=== PATIENT | male | born 1955 | race American Indian/Alaskan Native ===

== ENCOUNTER 2017-05-07 02:20 | Inpatient (IN) | payer SELFPAY ==
[2017-05-07 03:27] LABS: Basophils % (Auto) 0.4 % (0.0-1.8); Eosinophils % (Auto) 1.3 % (0.0-4.3); Hematocrit 45.4 % (35.5-45.6); Hemoglobin 15.1 gm/dl (11.8-15.2); Mean Corpuscular HGB Conc 33 % (32-34); Mean Corpuscular Hemoglobin 30 pg (28-32); Mean Corpuscular Volume 91 fl (84-94); Platelet Count 241 K/mm3 (140-440); Red Cell Distribution Width 13.6 % (13.2-15.2)
[2017-05-07 03:37] LABS: INR 0.96 (0.87-1.13)
[2017-05-07 03:38] LABS: Partial Thromboplastin Time 29.4 Sec. (24.2-36.6)
[2017-05-07 03:46] LABS: Anion Gap 19 mmol/L; BUN/Creatinine Ratio 15.55; Blood Urea Nitrogen 14 mg/dL (9-20); Calcium 8.9 mg/dL (8.4-10.2); Carbon Dioxide 25 mmol/L (22-30); Chloride 102.2 mmol/L (98-107); Glucose 120 mg/dL (75-100); Potassium 3.7 mmol/L (3.6-5.0); Sodium 142 mmol/L (137-145)
--- NOTE | 2017-05-07 04:02 | Emergency Department Report ---
ED Palpitations HPI - General Chief Complaint: Chest Pain Stated Complaint: CP,SOB Time Seen by Provider: 05/07/17 02:51 Source: patient Mode of arrival: Ambulatory Limitations: No Limitations - History of Present Illness Initial Comments: 62-year-old male with a past medical history CVA and hypertension and SVT episode 2 years ago presents to the hospital complaining of palpitations, chest pain, and shortness of breath. Patient woke up at 1:30 AM with his current symptoms. There continues without aggravating or alleviating factors. Chest tightness rated 4/10 in intensity. No reports of nausea, vomiting, or diaphoresis. Similar episode 2 years ago. Patient was treated with IV medication admitted to the hospital. Told that he might need cardiac stents. 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 - Related Data Allergies Allergy/AdvReac Type Severity Reaction Status Date / Time No Known Allergies Allergy Verified 05/07/17 02:33 ED Review of Systems ROS: Stated complaint: CP,SOB Other details as noted in HPI Comment: All other systems reviewed and negative Other: Constitutional: No fevers chills Eyes: No eye pain visual changes ENT: No ear pain or throat pain Neck: Denies pain Respiratory: Denies cough wheezing Cardiovascular: As per HPI GI: Denies abdominal pain, nausea, vomiting, diarrhea : Denies dysuria Musculoskeletal: Denies back pain, joint swelling Skin: Denies rash, lesions, erythema Neurologic: Denies headache, numbness, weakness Psychiatric: Denies suicidal ideation, hallucinations ED Past Medical Hx - Past Medical History Previous Medical History?: Yes Hx Hypertension: Yes Additional medical history: CVA 05/2016. svt 2014 - Surgical History Past Surgical History?: No - Social History Smoking Status: Never Smoker Substance Use Type: None ED Physical Exam - General Limitations: No Limitations - Other Other exam information: General: Mild distress Head exam: Atraumatic, normocephalic Eyes exam: Normal appearance ENT: Moist mucous membrane, normal oropharynx Neck exam: Normal inspection, full range of motion Respiratory exam: Clear to auscultation bilateral, no wheezes, rales, crackles Cardiovascular: Tachycardic regular rhythm Abdomen: Soft, nondistended, and nontender, with normal bowel sounds, no rebound, or guarding Extremity: Full range of motion normal inspection no deformity, no calf tenderness or edema Back: Normal Inspection, full range of motion, no tenderness Neurologic: Alert, oriented x3, cranial nerves intact, no motor or sensory deficit Psychiatric: normal affect, normal mood Skin: Warm, dry, intact ED Course Vital Signs 05/07/17 05/07/17 05/07/17 02:33 02:56 03:07 Temperature 97.6 F Pulse Rate 160 H 160 H 70 Respiratory 20 15 Rate Blood Pressure Blood Pressure 126/87 [Right] O2 Sat by Pulse 94 96 Oximetry 05/07/17 05/07/17 03:31 04:01 Temperature Pulse Rate 69 67 Respiratory 14 17 Rate Blood Pressure 100/66 122/77 Blood Pressure [Right] O2 Sat by Pulse 99 97 Oximetry - Reevaluation(s) Reevaluation #1: 05/07/17 04:36 Patient given adenosine 6 mg with conversion to sinus rhythm. Remains asymptomatic at this time - Consultations Consultation #1: 05/07/17 04:01 case d/w DR Skinner ([facility]) consult ordered, will evaluate ED Medical Decision Making - Lab Data Result diagrams: 05/07/17 02:33 05/07/17 02:33 Lab Results 05/07/17 05/07/17 05/07/17 Range/Units 02:33 02:33 02:33 WBC 9.0 (4.5-11.0) K/mm3 RBC 5.00 (3.65-5.03) M/mm3 Hgb 15.1 (11.8-15.2) gm/dl Hct 45.4 (35.5-45.6) % MCV 91 (84-94) fl MCH 30 (28-32) pg MCHC 33 (32-34) % RDW 13.6 (13.2-15.2) % Plt Count 241 (140-440) K/mm3 Lymph % (Auto) 31.4 (13.4-35.0) % [place] % (Auto) 10.2 H (0.0-7.3) % Eos % (Auto) 1.3 (0.0-4.3) % Baso % (Auto) 0.4 (0.0-1.8) % Lymph # 2.8 (1.2-5.4) K/mm3 [place] # 0.9 H (0.0-0.8) K/mm3 Eos # 0.1 (0.0-0.4) K/mm3 Baso # 0.0 (0.0-0.1) K/mm3 Seg Neutrophils % 56.7 (40.0-70.0) % Seg Neutrophils # 5.1 (1.8-7.7) K/mm3 PT 12.7 (12.2-14.9) Sec. INR 0.96 (0.87-1.13) APTT 29.4 (24.2-36.6) Sec. Sodium 142 (137-145) mmol/L Potassium 3.7 (3.6-5.0) mmol/L Chloride 102.2 (98-107) mmol/L Carbon Dioxide 25 (22-30) mmol/L Anion Gap 19 mmol/L BUN 14 (9-20) mg/dL Creatinine 0.9 (0.8-1.5) mg/dL Estimated GFR > 60 ml/min BUN/Creatinine Ratio 15.55 % Glucose 120 H (75-100) mg/dL Calcium 8.9 (8.4-10.2) mg/dL Magnesium (1.7-2.3) mg/dL Troponin T < 0.010 (0.00-0.029) ng/mL Free T4 (0.76-1.46) ng/dL 05/07/17 05/07/17 Range/Units 02:33 03:20 WBC (4.5-11.0) K/mm3 RBC (3.65-5.03) M/mm3 Hgb (11.8-15.2) gm/dl Hct (35.5-45.6) % MCV (84-94) fl MCH (28-32) pg MCHC (32-34) % RDW (13.2-15.2) % Plt Count (140-440) K/mm3 Lymph % (Auto) (13.4-35.0) % [place] % (Auto) (0.0-7.3) % Eos % (Auto) (0.0-4.3) % Baso % (Auto) (0.0-1.8) % Lymph # (1.2-5.4) K/mm3 [place] # (0.0-0.8) K/mm3 Eos # (0.0-0.4) K/mm3 Baso # (0.0-0.1) K/mm3 Seg Neutrophils % (40.0-70.0) % Seg Neutrophils # (1.8-7.7) K/mm3 PT (12.2-14.9) Sec. INR (0.87-1.13) APTT (24.2-36.6) Sec. Sodium (137-145) mmol/L Potassium (3.6-5.0) mmol/L Chloride (98-107) mmol/L Carbon Dioxide (22-30) mmol/L Anion Gap mmol/L BUN (9-20) mg/dL Creatinine (0.8-1.5) mg/dL Estimated GFR ml/min BUN/Creatinine Ratio % Glucose (75-100) mg/dL Calcium (8.4-10.2) mg/dL Magnesium 2.30 (1.7-2.3) mg/dL Troponin T (0.00-0.029) ng/mL Free T4 1.06 (0.76-1.46) ng/dL - EKG Data -: EKG Interpreted by Me (svt rate 158 with lateral and inferior ST depression) - EKG Data 05/07/17 04:36 EKG status post adenosine: Sinus rhythm rate [address] depression inferior and lateral - Radiology Data Radiology results: image reviewed (chest x-ray: No acute findings) - Medical Decision Making Plan to admit patient to the hospital for further cardiac evaluation and given ST abnormality and history of possibly needing a stent. Patient is further cardiac evaluation. Currently asymptomatic at disposition - Differential Diagnosis SVT, thyroid disease, electrolyte abnormality, arrhythmia Critical Care Time: No Critical care attestation.: If time is entered above; I have spent that time in minutes in the direct care of this critically ill patient, excluding procedure time. ED Disposition Clinical Impression: SVT (supraventricular tachycardia), HTN (hypertension), Chest pain Disposition: OP ADMIT IP TO THIS HOSP Is pt being admited?: Yes Does the pt Need Aspirin: Yes Condition: Stable Time of Disposition: 03:59 (Dr wasserman/hosp)
--- NOTE | 2017-05-07 04:16 | XRay Report ---
FINAL REPORT PROCEDURE: XR CHEST 1V AP TECHNIQUE: Chest radiograph anteroposterior view. CPT 89714 HISTORY: palpitations, chest pain COMPARISON: No prior studies are available for comparison. FINDINGS: Heart: Normal. Mediastinum/Vessels: Normal. Lungs/Pleural space: There are fibrotic changes at the lung bases. There are no active infiltrates. There are no effusions or pneumothoraces.. Bony thorax: No acute osseous abnormality. Life support devices: None. IMPRESSION: No acute cardiopulmonary abnormality.
[2017-05-07] MEDS ORDERED: ASPIRIN PO ONE (04:38)
--- NOTE | 2017-05-07 07:45 | Admit Criteria Form ---
Admission Criteria Documentation: SUPRAVENTRICULAR ARRHYTHMIAS Clinical Indications for Admission to Inpatient Care (Place 'X' for any and all applicable criteria): Admission is indicated by ANY ONE of the following (1)(2): [X]I. Arrhythmia causing significant symptoms or findings as indicated by ANY ONE of the following: [X]a) Chest pain [ ]b) Myocardial ischemia [ ]c) Altered mental status [ ]d) Dizziness, weakness, or light-headedness [ ]e) Dyspnea or hypoxemia [ ]f) Heart failure (eg, pulmonary edema)(11) [ ]II. Initiation of antiarrhythmic drug therapy is needed in patient at high risk of adverse events as indicated by ANY ONE of the following: [ ]a) Significant structural heart disease (eg, aortic stenosis, reduced ejection fraction, cardiomyopathy, congenital heart disease) [ ]b) Underlying sinus node or atrioventricular conduction disturbances [ ]c) Prolonged QT interval [ ]d) Need for treatment with antiarrhythmic that have significant proarrhythmic potential ( procainamide) [ ]e) Patient whose sinus rhythm has not been observed on ECG [ ]III. Inpatient admission required rather than observation care because of ANY ONE of the following: [ ]a) Syncope [ ]b) Patient has automatic implanted cardioverter-defibrillator that is repeatedly firing, malfunctioning, or in need of immediate adjustment of settings beyond scope of ambulatory or observation care. [ ]c) Hemodynamic instability that is severe or persistent [ ]d) Unstable cardiac conduction defects indicated by ANY ONE of the following(19)(20)(21): [ ]a) Type II second-degree atrioventricular block [ ]b) Third-degree atrioventricular block [ ]C) New-onset left bundle branch block with suspected myocardial ischemia [ ]e) Severe electrolyte abnormalities requiring inpatient care [ ]f) Continuous intravenous infusion of anticoagulation, platelet inhibitor, vasoactive, or antiarrhythmic medication(14) [ ]g) Pulmonary artery catheter monitoring [ ]h) Repeat cardioversion necessary [ ]i) Other condition, treatment or monitoring requiring inpatient admission [ ]IV. Underlying medical condition that necessitates inpatient care (eg, thyrotoxicosis, severe acidosis) Extended stay beyond goal length of stay may be needed for(1)(17)(18): [ ]a) Persistent hemodynamic instability or continued severe arrhythmia [ ]b) Continued monitoring during initiation of certain medications (eg, some antiarrhythmics)(17)(19) [ ]c) Precipitating cause requires ongoing inpatient care (eg, severe electrolyte abnormality, systemic infection, acidosis) [ ]d) Unstable comorbidities The original [facility] content created by [facility] has been revised. The portions of the content which have been revised are identified through the use of italic text or in bold, and [facility] has neither reviewed nor approved the modified material. All other unmodified content is copyright [facility]. Please see references footnoted in the original [facility] edition 2016 Admission Criteria Met: Yes
--- NOTE | 2017-05-07 08:53 | History and Physical Report ---
History of Present Illness Date of examination: 05/07/17 Date of admission: 05/07/17 04:01 Chief complaint: Heart Palpitations History of present illness: is a 62 years old female with h/o HTN, CVA with right side weakness who presented to the ED complaining of chest pain and palpation . He states that the pain began the today around 4:30 consisted of a heart palpation, followed by a dull chest pain that would last around 2 minutes. The pain was located over his left chest area somewhat near his shoulder. The onset of pain came while the patient was sleeping. he noticed the pain as he was getting out of bed. Once again it was a dull pain, preceded by a consisted heart palpations. The patient did experience diaphoresis and some tingling in his right arm after the pain ceased. He continued to have several episodes of the pain throughout the morning, so his sister decided to take him to the ED around 6: 00Am. The painful episodes did not increase in intensity or severity during this time. At the ED the patient was given adenosine 6mg then 12mg and was converted to sinus rhythm. patient has not experienced any shortness of breath , nausea, vomiting during these episodes of pain. He has had the same episodes two years ago. patient was treated with IV medication and was told he might need cardiac stents but somewhat patient did not agree with the recommendation. Past History Past Medical History: hypertension, stroke (05/2016 with right side weakness) Past Surgical History: No surgical history Social history: single Family history: hypertension Medications and Allergies Allergies Allergy/AdvReac Type Severity Reaction Status Date / Time No Known Allergies Allergy Verified 05/07/17 02:33 Home Medications Medication Instructions Recorded Confirmed Last Taken Type Unobtainable 05/07/17 05/07/17 Unknown History Active Meds: Active Medications Acetaminophen (Tylenol) 650 mg PO Q4H PRN PRN Reason: Pain MILD(1-3)/Fever >100.5/VELA Aspirin (Aspirin) 325 mg PO QDAY DORIS Bisacodyl (Dulcolax) 10 mg MO QDAY PRN PRN Reason: Constipation unrelieved by MOM Magnesium Hydroxide (Milk Of Magnesia) 30 ml PO Q4H PRN PRN Reason: Constipation Morphine Sulfate (Morphine) 2 mg IV Q4H PRN PRN Reason: Pain, Moderate (4-6) Ondansetron HCl (Zofran) 4 mg IV Q8H PRN PRN Reason: N/V unrelieved by Reglan Review of Systems Constitutional: no weight loss, no weight gain, no fever, no chills, no sweats Ears, nose, mouth and throat: no ear pain, no ear discharge, no tinnitis, no decreased hearing Cardiovascular: chest pain, palpitations, rapid/irregular heart beat, syncope, no lightheadedness, no shortness of breath Respiratory: no cough, no cough with sputum, no excessive sputum Gastrointestinal: no abdominal pain, no nausea, no vomiting Genitourinary Male: no dysuria, no hematuria, no flank pain Musculoskeletal: no neck stiffness, no neck pain, no shooting arm pain Integumentary: no rash, no pruritis Neurological: no head injury, no transient paralysis, no paralysis Psychiatric: no anxiety, no memory loss, no change in sleep habits, no sleep disturbances, no insomnia Endocrine: no cold intolerance, no heat intolerance, no polyphagia Hematologic/Lymphatic: no easy bruising, no easy bleeding Allergic/Immunologic: no urticaria, no allergic rhinitis Exam - Constitutional Vitals: Temp Pulse Resp BP Pulse Ox 97.6 F 63 20 130/75 95 05/07/17 02:33 05/07/17 07:31 05/07/17 07:31 05/07/17 07:31 05/07/17 07:31 General appearance: Present: no acute distress - EENT Eyes: Present: PERRL, EOM intact ENT: hearing intact, clear oral mucosa, dentition normal - Neck Neck: Present: supple, normal ROM - Respiratory Respiratory effort: normal - Cardiovascular Rhythm: regularly irregular - Extremities Extremities: pulses symmetrical, No edema Peripheral Pulses: within normal limits - Abdominal General gastrointestinal: Present: soft, non-tender Male genitourinary: Present: deferred - Rectal Rectal Exam: deferred - Integumentary Integumentary: Present: clear, warm, dry - Musculoskeletal Musculoskeletal: right sided weakness - Psychiatric Psychiatric: appropriate mood/affect, intact judgment & insight - Neurologic Neurologic: CNII-XII intact Results - Labs CBC & Chem 7: 05/07/17 02:33 05/07/17 02:33 Labs: Laboratory Last Values WBC 9.0 K/mm3 (4.5-11.0) 05/07/17 02:33 RBC 5.00 M/mm3 (3.65-5.03) 05/07/17 02:33 Hgb 15.1 gm/dl (11.8-15.2) 05/07/17 02:33 Hct 45.4 % (35.5-45.6) 05/07/17 02:33 MCV 91 fl (84-94) 05/07/17 02:33 MCH 30 pg (28-32) 05/07/17 02:33 MCHC 33 % (32-34) 05/07/17 02:33 RDW 13.6 % (13.2-15.2) 05/07/17 02:33 Plt Count 241 K/mm3 (140-440) 05/07/17 02:33 Lymph % (Auto) 31.4 % (13.4-35.0) 05/07/17 02:33 [place] % (Auto) 10.2 % (0.0-7.3) H 05/07/17 02:33 Eos % (Auto) 1.3 % (0.0-4.3) 05/07/17 02:33 Baso % (Auto) 0.4 % (0.0-1.8) 05/07/17 02:33 Lymph # 2.8 K/mm3 (1.2-5.4) 05/07/17 02:33 [place] # 0.9 K/mm3 (0.0-0.8) H 05/07/17 02:33 Eos # 0.1 K/mm3 (0.0-0.4) 05/07/17 02:33 Baso # 0.0 K/mm3 (0.0-0.1) 05/07/17 02:33 Seg Neutrophils % 56.7 % (40.0-70.0) 05/07/17 02:33 Seg Neutrophils # 5.1 K/mm3 (1.8-7.7) 05/07/17 02:33 PT 12.7 Sec. (12.2-14.9) 05/07/17 02:33 INR 0.96 (0.87-1.13) 05/07/17 02:33 APTT 29.4 Sec. (24.2-36.6) 05/07/17 02:33 Sodium 142 mmol/L (137-145) 05/07/17 02:33 Potassium 3.7 mmol/L (3.6-5.0) 05/07/17 02:33 Chloride 102.2 mmol/L (98-107) 05/07/17 02:33 Carbon Dioxide 25 mmol/L (22-30) 05/07/17 02:33 Anion Gap 19 mmol/L 05/07/17 02:33 BUN 14 mg/dL (9-20) 05/07/17 02:33 Creatinine 0.9 mg/dL (0.8-1.5) 05/07/17 02:33 Estimated GFR > 60 ml/min 05/07/17 02:33 BUN/Creatinine Ratio 15.55 % 05/07/17 02:33 Glucose 120 mg/dL (75-100) H 05/07/17 02:33 Calcium 8.9 mg/dL (8.4-10.2) 05/07/17 02:33 Magnesium 2.30 mg/dL (1.7-2.3) 05/07/17 02:33 Troponin T 0.014 ng/mL (0.00-0.029) 05/07/17 07:57 TSH 2.090 mlU/mL (0.270-4.200) 05/07/17 03:20 Free T4 1.06 ng/dL (0.76-1.46) 05/07/17 03:20 Assessment and Plan Assessment and plan: ASSESSMENT/PLAN 1. Supraventricular tachycardia- We will admit to Telemetry floor Patient HR 180's and given 12 mg of Adenosine in the ED. HR came down to high 50's/60's 12 lead EKG obtained, we also get another EKG in order for any changes that have taken since the first obtained serial cardiac enzyme done with Echocardiogram pending Cardiology consulted for further evaluation 2. Syncope Echocardiogram pending cardiology consulted 3. Hypertensive urgency patient does not know his home blood pressure medicine We will start Nifedipine 10mg daily and Lisinopril 20mg BID Also Hydralazine IV 20mg BID. Also Beta-Blockers but waiting for Cardiology input Cardiac diet VTE/ GI Prophylaxis Lovenox/ Pepcid
[2017-05-07] MEDS ORDERED: APRESOLINE IV ONE (09:47)
[2017-05-07] MEDS ORDERED: DULCOLAX PR PRN (10:00)
[2017-05-07] MEDS ORDERED: ZOFRAN IV PRN (10:00)
[2017-05-07] MEDS ORDERED: MORPHINE IV PRN (10:00)
[2017-05-07] MEDS ORDERED: TYLENOL PO PRN (10:00)
[2017-05-07] MEDS ORDERED: APRESOLINE IV PRN (10:47)
[2017-05-07] MEDS: ASPIRIN PO SCH (11:27)
--- NOTE | 2017-05-07 12:22 | Consultation ---
History of Present Illness Consult date: 05/07/17 Consult reason: other (SVT) History of present illness: 62yr old male visiting from [place] presents to the ED with palpitations. Found to be sustained supraventricular tachycardia with a heart rate of 160. He was treated with adenosine 6mg x 1 which reverted him to a sinus rhythm. Post cardioversion ECG shows a normal sinus rhythm. Cardiology consultation requested for further recommendations. Past History Past Medical History: hypertension Past Surgical History: No surgical history Social history: single Family history: hypertension Medications and Allergies Allergies Allergy/AdvReac Type Severity Reaction Status Date / Time No Known Allergies Allergy Verified 05/07/17 02:33 Home Medications Medication Instructions Recorded Confirmed Last Taken Type Unobtainable 05/07/17 05/07/17 Unknown History Active Meds: Active Medications Acetaminophen (Tylenol) 650 mg PO Q4H PRN PRN Reason: Pain MILD(1-3)/Fever >100.5/VELA Amlodipine Besylate (Norvasc) 10 mg PO QDAY [facility] Aspirin (Aspirin) 325 mg PO QDAY [facility] Last Admin: 05/07/17 11:27 Dose: Not Given Bisacodyl (Dulcolax) 10 mg [place] QDAY PRN PRN Reason: Constipation unrelieved by MOM Hydralazine HCl (Apresoline) 20 mg IV Q4HR PRN PRN Reason: high blood pressure Lisinopril (Zestril) 20 mg PO BID [facility] Magnesium Hydroxide (Milk Of Magnesia) 30 ml PO Q4H PRN PRN Reason: Constipation Metoprolol Tartrate (Lopressor) 50 mg PO BID [facility] Morphine Sulfate (Morphine) 2 mg IV Q4H PRN PRN Reason: Pain, Moderate (4-6) Ondansetron HCl (Zofran) 4 mg IV Q8H PRN PRN Reason: N/V unrelieved by Reglan Physical Examination Vital Signs Temp Pulse Resp BP Pulse Ox 97.6 F 160 H 20 126/87 94 05/07/17 02:33 05/07/17 02:33 05/07/17 02:33 05/07/17 02:33 05/07/17 02:33 General appearance: no acute distress HEENT: Positive: PERRL Neck: Positive: trachea midline Cardiac: Positive: Reg Rate and Rhythm Results 05/07/17 02:33 05/07/17 02:33 Assessment and Plan SVT treated with adenosine 6mg x1 currently in sinus rhythm Hypertension Recommendations: Beta jasper therapy for suppression of SVT. Echocardiogram for LVEF assessment. Thallium stress test before discharge.
[2017-05-07] MEDS: MILK OF MAGNESIA PO PRN ×2 (17:30→22:17)
[2017-05-07] MEDS: ZESTRIL PO SCH (22:16)
[2017-05-07] MEDS: LOPRESSOR PO SCH (22:16)
[2017-05-08 08:42] LABS: Basophils % (Auto) 0.3 % (0.0-1.8); Eosinophils % (Auto) 1.5 % (0.0-4.3); Hematocrit 40.8 % (35.5-45.6); Hemoglobin 13.5 gm/dl (11.8-15.2); Mean Corpuscular HGB Conc 33 % (32-34); Mean Corpuscular Hemoglobin 31 pg (28-32); Mean Corpuscular Volume 92 fl (84-94); Platelet Count 215 K/mm3 (140-440); Red Blood Count 4.43 M/mm3 (3.65-5.03); Red Cell Distribution Width 13.8 % (13.2-15.2); White Blood Count 6.8 K/mm3 (4.5-11.0)
[2017-05-08 08:54] LABS: BUN/Creatinine Ratio 15.55; Blood Urea Nitrogen 14 mg/dL (9-20); Calcium 8.9 mg/dL (8.4-10.2); Carbon Dioxide 28 mmol/L (22-30); Glucose 119 mg/dL (75-100)
[2017-05-08 08:55] LABS: Anion Gap 13 mmol/L; Chloride 103.8 mmol/L (98-107); Potassium 4.2 mmol/L (3.6-5.0); Sodium 141 mmol/L (137-145)
[2017-05-08] MEDS ORDERED: NORVASC PO SCH (10:00)
--- NOTE | 2017-05-08 10:24 | Discharge Summary ---
Providers - Providers Date of Admission: 05/07/17 04:01 Date of discharge: 05/09/17 Attending physician: COOKIE JARA MD Primary care physician: [employer]ER Hospitalization Condition: Stable Disposition: DC-01 TO HOME OR SELFCARE Time spent for discharge: 35 mins Core Measure Documentation - Palliative Care Palliative Care/ Comfort Measures: Not Applicable Exam - Constitutional Vitals: Temp Pulse Resp BP Pulse Ox 97.7 F 49 L 20 113/70 96 05/08/17 04:15 05/08/17 09:54 05/08/17 04:15 05/08/17 04:15 05/08/17 08:37 Plan Activity: advance as tolerated, fall precautions Diet: low salt Special Instructions: record daily weights, record daily BP diary, other ( encouraged to loose weight) Additional Instructions: continue cholorothalidone at home dose. Discuss Rule out of WADE with PCP. Follow up with: PRIMARY CAREMD [Primary Care Provider] - 7 Days DAVID ZHONG MD [Staff Physician] - 7 Days Prescriptions: Metoprolol [Lopressor TAB] 50 mg PO BID #30 tablet
--- NOTE | 2017-05-08 11:13 | Progress Note ---
Assessment and Plan SVT treated with adenosine 6mg x1 currently in sinus rhythm Hypertension Recommendations: Beta jasper therapy for suppression of SVT. Echocardiogram for LVEF assessment. Thallium stress test before discharge. Subjective Date of service: 05/08/17 Interval history: Patient denies chest pain and shortness of breath. He denies palpitations. Awaits stress test. Objective Vital Signs Temp Pulse Pulse Pulse Resp BP BP 05/08/17 10:40 98.6 F 59 L 12 05/08/17 09:54 49 L 05/08/17 08:37 05/08/17 04:15 97.7 F 56 L 20 05/08/17 00:58 98.2 F 56 L 20 130/69 05/08/17 00:25 63 05/07/17 22:30 67 64 20 05/07/17 22:16 60 121/74 05/07/17 21:02 97.8 F 60 20 121/73 05/07/17 20:49 05/07/17 18:00 98.7 F 12 129/81 05/07/17 14:00 61 13 120/55 05/07/17 13:30 58 L 14 119/53 05/07/17 13:01 70 11 L 153/77 05/07/17 12:31 62 14 84/44 05/07/17 12:01 59 L 12 130/75 05/07/17 11:31 57 L 17 126/79 BP Pulse Ox 05/08/17 10:40 101/56 64 L 05/08/17 09:54 05/08/17 08:37 96 05/08/17 04:15 113/70 99 05/08/17 00:58 97 05/08/17 00:25 05/07/17 22:30 05/07/17 22:16 05/07/17 21:02 95 05/07/17 20:49 98 05/07/17 18:00 99 05/07/17 14:00 05/07/17 13:30 96 05/07/17 13:01 98 05/07/17 12:31 98 05/07/17 12:01 78 L 05/07/17 11:31 100 - Physical Examination General: No Apparent Distress HEENT: Positive: PERRL Neck: Positive: trachea midline Cardiac: Positive: Reg Rate and Rhythm - Labs and Meds CBC 05/08/17 Range/Units 07:59 WBC 6.8 (4.5-11.0) K/mm3 RBC 4.43 (3.65-5.03) M/mm3 Hgb 13.5 (11.8-15.2) gm/dl Hct 40.8 (35.5-45.6) % Plt Count 215 (140-440) K/mm3 Lymph # 1.7 (1.2-5.4) K/mm3 [place] # 0.6 (0.0-0.8) K/mm3 Eos # 0.1 (0.0-0.4) K/mm3 Baso # 0.0 (0.0-0.1) K/mm3 Comprehensive Metabolic Panel 05/08/17 Range/Units 07:59 Sodium 141 (137-145) mmol/L Potassium 4.2 (3.6-5.0) mmol/L Chloride 103.8 (98-107) mmol/L Carbon Dioxide 28 (22-30) mmol/L BUN 14 (9-20) mg/dL Creatinine 0.9 (0.8-1.5) mg/dL Glucose 119 H (75-100) mg/dL Calcium 8.9 (8.4-10.2) mg/dL
[2017-05-08] MEDS: ASPIRIN PO SCH (12:44)
[2017-05-08] MEDS: LOPRESSOR PO SCH ×2 (12:45→22:43)
[2017-05-08] MEDS: ZESTRIL PO SCH (12:47)
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
[2017-05-09] MEDS ORDERED: LEXISCAN IV ONE ×2 (08:40→08:47)
--- NOTE | 2017-05-09 09:36 | Progress Note ---
Assessment and Plan SVT treated with adenosine 6mg x1 currently in sinus rhythm Hypertension EF 55-60% on echocardiogram. Recommendations: Beta jasper therapy for suppression of SVT. For stress thallium test today, results pending. Subjective Date of service: 05/09/17 Interval history: For thallium stress test today. Objective Vital Signs Temp Pulse Pulse Resp BP BP Pulse Ox 05/09/17 09:13 63 122/78 05/09/17 09:12 66 120/82 05/09/17 09:11 67 121/72 05/09/17 09:10 70 127/74 05/09/17 09:09 54 L 158/89 05/09/17 09:00 48 L 05/09/17 08:59 54 L 148/90 05/09/17 05:49 97.8 F 54 L 22 121/73 97 05/09/17 01:08 55 L 05/09/17 00:00 97.4 F L 52 L 20 116/64 93 05/08/17 22:43 54 L 05/08/17 21:00 98.8 F 54 L 20 107/66 98 05/08/17 20:36 89 20 93 05/08/17 18:20 98.6 F 89 12 113/56 93 05/08/17 10:40 98.6 F 59 L 12 101/56 64 L 05/08/17 09:54 49 L
[2017-05-09 09:51] VITALS: BP 118/67
[2017-05-09] MEDS: LOPRESSOR PO SCH (14:33)
[2017-05-09] MEDS: ASPIRIN PO SCH (14:33)
--- NOTE | 2017-05-10 03:03 | Treadmill Report ---
ORDERING PHYSICIAN: Dr. Anand. INDICATION: Shortness of breath. FINDINGS: There is no scintigraphic evidence of myocardial ischemia. The left ventricle is normal in size and systolic function. The left ventricular ejection fraction measured at 62%. Normal wall motion and wall thickening is noted on gated imaging. CONCLUSION: Normal perfusion scan. JOB# [id number] GIANLUCA/ALESSANDRA
== END 2017-05-09 14:51 | disposition home or self-care (01) | DRG 309 ==
LOC: ED 02:20 → 4A 04:01
PROVIDERS: ADMIT Internal Medicine; ATTEND Internal Medicine
PROC: 4A02XM4 Measurement of Cardiac Total Activity, External Approach (ICD-10-PCS; principal; 2017-05-08)
DX: I47.1 Supraventricular tachycardia (principal); G81.91 Hemiplegia, unspecified affecting right dominant side; I16.0 Hypertensive urgency; I10 Essential (primary) hypertension; Z86.73 Personal history of transient ischemic attack (TIA), and cerebral infarction without residual deficits; Z82.49 Family history of ischemic heart disease and other diseases of the circulatory system
CPT/HCPCS: 36415; 71010; 78452; 80048; 83735; 84439; 84443; 84484; 85025; 85610; 85730; 93005; 93010; 93017; 93306; A9502; J0153; J0360; J2270; J2405; J2785